=== PATIENT | female | born 1940 | race Caucasian/White ===

== ENCOUNTER 2021-05-07 16:38 | Inpatient (IN) | payer OTHER ==
[~2021-05-07] VITALS: Ht 162.6 cm; Wt 51.3 kg
[~2021-05-07 16:38] MED LIST: MUCINEX600 MG PO; OMNICEF 300 MG300 MG PO
[2021-05-07 17:56] LABS: HEMOGLOBIN 9.5 gm/dl (12.3-15.3); RED BLOOD COUNT 3.96 M/UL (4.00-5.10); WHITE BLOOD COUNT 10.3 K/UL (4.5-11.0)
[2021-05-08 05:01] LABS: HEMOGLOBIN 9.5 gm/dl (12.3-15.3); RED BLOOD COUNT 4.02 M/UL (4.00-5.10); WHITE BLOOD COUNT 12.8 K/UL (4.5-11.0)
[2021-05-08] MEDS ORDERED: HYDRALAZINE HCL25 MG PO (06:48)
[2021-05-08] MEDS ORDERED: NORVASC10 MG PO (06:49)
[2021-05-08] MEDS ORDERED: LANTUS SOL100 UNIT/1 SC (06:49)
[2021-05-08] MEDS ORDERED: COREG 25MG TAB25 MG PO (06:49)
[2021-05-08] MEDS ORDERED: OMEPRAZOLE20 MG PO (06:49)
[2021-05-08] MEDS ORDERED: LIPITOR TAB 2020 MG PO (06:50)
[2021-05-08] MEDS ORDERED: GLUCOTROL XL 5 M5 MG PO (06:50)
[2021-05-08] MEDS ORDERED: ACTOS TAB 15MG15 MG PO (06:50)
[2021-05-08] MEDS ORDERED: SYNTHROID112 MCG PO (06:50)
[2021-05-08] MEDS ORDERED: BENICAR40 MG PO (06:51)
[2021-05-09 02:38] LABS: HEMOGLOBIN 9.1 gm/dl (12.3-15.3); RED BLOOD COUNT 3.8 M/UL (4.00-5.10); WHITE BLOOD COUNT 14.6 K/UL (4.5-11.0)
[2021-05-10 01:44] LABS: HEMOGLOBIN 9.2 gm/dl (12.3-15.3); RED BLOOD COUNT 3.82 M/UL (4.00-5.10); WHITE BLOOD COUNT 14.4 K/UL (4.5-11.0)
[2021-05-12 02:29] LABS: HEMOGLOBIN 8.9 gm/dl (12.3-15.3); RED BLOOD COUNT 3.7 M/UL (4.00-5.10)
[2021-05-13 02:52] LABS: HEMOGLOBIN 8.7 gm/dl (12.3-15.3); RED BLOOD COUNT 3.6 M/UL (4.00-5.10)
[2021-05-13 02:53] LABS: WHITE BLOOD COUNT 13.7 K/UL (4.5-11.0)
--- NOTE | 2021-05-13 13:13 | NUR ---
SPOKE WITH MARTIN AT DR PRATT OFFICE TO INFORM HIM OF CONSULT
[2021-05-15 11:15] LABS: CREATININE, URINE 33.4 mg/dL (Not Estab.)
--- NOTE | 2021-05-15 20:23 | NUR ---
ATTEMPTED TO CALL FAMILY REGARDING NG TUBE PLACEMENT.
--- NOTE | 2021-05-16 01:05 | NUR ---
ATTEMPTED NG TUBE PLACEMENT X2. PATIENT IS OREINTED TO HERSELF AND PLACE. PATIENT REFUSED FOR A 3RD ATTEMPT. SHE RESISTED AND WAS UNCOOPERATIVE WITH THE ATTEMPTED PLACEMENT OF THE NG.
--- NOTE | 2021-05-16 01:10 | NUR ---
ATTEMPTED TO PLACE DOBHOFF X2. PATIENT WAS ALERT AND OREINTED TO PERSON AND PLACE. PATIENT REFUSED A 3RD ATTEMPT. SHE RESISTED AND WAS UNCOOPERATIVE DURING THE ATTEMPT TO PLACE DOBHOFF.
[2021-05-16 02:38] LABS: HEMOGLOBIN 8.5 gm/dl (12.3-15.3); RED BLOOD COUNT 3.57 M/UL (4.00-5.10)
[2021-05-16 02:43] LABS: WHITE BLOOD COUNT 9.6 K/UL (4.5-11.0)
--- NOTE | 2021-05-16 04:32 | NUR ---
ATTEMPTED DOBHOFF PLACEMENT. MET RESISTANCE BUT WAS ABLE TO PUSH BY, PATIENT STARTED TO DESAT INTO THE 70S WE GOT TO 30CM. PATIENT WAS TURNING BLUE, COUGHING AND WAS HOLDING HER BREATH WHILE PULLING AT THE DOBHOFF. SCANT AMOUNT OF BLOOD WAS NOTED. THERON RN PULLED BACK ON THE DOBHOFF DUE TO PATIENT NONCOMPLIANCE AND SATS DROPPING. ONCE DOBHOFF WAS PULLED BACK OUT, PATIENTS SATS BEGAN TO COME BACK UP TO 98%, HR RETURNED TO NORMAL AND TIP OFF DOBHOFF WAS INTACT. ASCULTATED ALL LUNG SOUNDS. NO CHANGES NOTED.
[2021-05-16 12:15] LABS: COMPLEMENT C3, SERUM 131 mg/dL (82-167); COMPLEMENT C4, SERUM 32 mg/dL (12-38)
[2021-05-16 16:15] LABS: A/G RATIO 0.9 (0.7-1.7); ALBUMIN 2.6 g/dL (2.9-4.4); ALPHA-1-GLOBULIN 0.4 g/dL (0.0-0.4); GAMMA GLOBULIN 0.6 g/dL (0.4-1.8); GLOBULIN, TOTAL 2.9 g/dL (2.2-3.9); IMMUNOGLOBULIN A, QN, SERUM 190 mg/dL (64-422); IMMUNOGLOBULIN G, QN, SERUM 611 mg/dL (586-1602); IMMUNOGLOBULIN M, QN, SERUM 66 mg/dL (26-217); M-SPIKE Not Observed g/dL (Not Observed); PROTEIN, TOTAL, SERUM 5.5 g/dL (6.0-8.5)
[2021-05-16 17:09] LABS: ANTI-DSDNA ANTIBODIES <1 IU/mL (0-9)
[2021-05-17 17:09] LABS: ANTIMYELOPEROXIDASE (MPO) ABS <9.0 U/mL (0.0-9.0); ANTIPROTEINASE 3 (PR-3) ABS <3.5 U/mL (0.0-3.5); ATYPICAL PANCA <1:20 titer (Neg:<1:20); CYTOPLASMIC (C-ANCA) <1:20 titer (Neg:<1:20); PERINUCLEAR (P-ANCA) <1:20 titer (Neg:<1:20)
[2021-05-22 03:02] LABS: HEMOGLOBIN 7.1 gm/dl (12.3-15.3); RED BLOOD COUNT 2.99 M/UL (4.00-5.10); WHITE BLOOD COUNT 9.9 K/UL (4.5-11.0)
[2021-05-22 10:28] LABS: HEMOGLOBIN 7.9 gm/dl (12.3-15.3)
[2021-05-22 10:35] LABS: RED BLOOD COUNT 3.32 M/UL (4.00-5.10); WHITE BLOOD COUNT 12.8 K/UL (4.5-11.0)
[2021-05-23 09:07] LABS: HEMOGLOBIN 9.2 gm/dl (12.3-15.3)
[2021-05-23 09:08] LABS: RED BLOOD COUNT 3.7 M/UL (4.00-5.10)
[2021-05-24 04:41] LABS: HEMOGLOBIN 9.5 gm/dl (12.3-15.3); RED BLOOD COUNT 3.9 M/UL (4.00-5.10); WHITE BLOOD COUNT 10.8 K/UL (4.5-11.0)
[2021-05-25 06:25] LABS: HEMOGLOBIN 9.6 gm/dl (12.3-15.3); RED BLOOD COUNT 3.89 M/UL (4.00-5.10)
[2021-05-25 06:28] LABS: WHITE BLOOD COUNT 7.7 K/UL (4.5-11.0)
[2021-05-26 09:00] LABS: HEMOGLOBIN 9.5 gm/dl (12.3-15.3); RED BLOOD COUNT 3.86 M/UL (4.00-5.10); WHITE BLOOD COUNT 7.6 K/UL (4.5-11.0)
[2021-05-27 06:37] LABS: HEMOGLOBIN 8.8 gm/dl (12.3-15.3); RED BLOOD COUNT 3.63 M/UL (4.00-5.10); WHITE BLOOD COUNT 7.6 K/UL (4.5-11.0)
[2021-05-27 20:27] LABS: HEMOGLOBIN 8.9 gm/dl (12.3-15.3); RED BLOOD COUNT 3.61 M/UL (4.00-5.10)
[2021-05-27 20:32] LABS: WHITE BLOOD COUNT 9.6 K/UL (4.5-11.0)
[2021-05-28 03:34] LABS: HEMOGLOBIN 8.7 gm/dl (12.3-15.3); RED BLOOD COUNT 3.56 M/UL (4.00-5.10); WHITE BLOOD COUNT 8.3 K/UL (4.5-11.0)
--- NOTE | 2021-05-28 23:33 | NUR ---
patient resting in bed with eyes closed. respirations even and unlabored with no complaints at this time. 02 in use n/c telemtry in use afib vs sinus with heart rate in the 80s.
[2021-05-29 06:51] LABS: HEMOGLOBIN 9.1 gm/dl (12.3-15.3); RED BLOOD COUNT 3.75 M/UL (4.00-5.10); WHITE BLOOD COUNT 7.7 K/UL (4.5-11.0)
[2021-05-30 03:51] LABS: HEMOGLOBIN 7.8 gm/dl (12.3-15.3)
[2021-05-30 03:52] LABS: RED BLOOD COUNT 3.21 M/UL (4.00-5.10)
[2021-05-30 17:12] LABS: HEPARIN INDUCED PLATELET AB 0.107 OD (0.000-0.400)
[2021-05-31 03:36] LABS: RED BLOOD COUNT 3.05 M/UL (4.00-5.10)
[2021-05-31 03:44] LABS: HEMOGLOBIN 6.9 gm/dl (12.3-15.3); WHITE BLOOD COUNT 10.3 K/UL (4.5-11.0)
[2021-05-31 17:12] LABS: HEMOGLOBIN 9.2 gm/dl (12.3-15.3)
[2021-06-01 06:34] LABS: HEMOGLOBIN 8.6 gm/dl (12.3-15.3); WHITE BLOOD COUNT 11.2 K/UL (4.5-11.0)
[2021-06-01 06:36] LABS: RED BLOOD COUNT 3.57 M/UL (4.00-5.10)
[2021-06-02 06:15] LABS: HEMOGLOBIN 8.6 gm/dl (12.3-15.3); RED BLOOD COUNT 3.58 M/UL (4.00-5.10); WHITE BLOOD COUNT 10.5 K/UL (4.5-11.0)
[2021-06-03 03:48] LABS: HEMOGLOBIN 8.4 gm/dl (12.3-15.3); RED BLOOD COUNT 3.26 M/UL (4.00-5.10)
[2021-06-03] MEDS ORDERED: CARVEDILOL3.125 MG PO (15:37)
[2021-06-03] MEDS ORDERED: IPRAT-ALBUT 0.5-3 ML NEB (15:37)
[2021-06-03] MEDS ORDERED: TAB-A-VITE TA400 MC1 PO (15:37)
[2021-06-03] MEDS ORDERED: FOLIC ACID 1 MG1 MG PO (15:37)
[2021-06-03] MEDS ORDERED: HUMALOG 10100 UNITS/ SC (15:37)
[2021-06-03] MEDS ORDERED: HYDRALAZINE HCL50 MG PO (15:37)
[2021-06-03] MEDS ORDERED: ELIQUIS 2.5 MG2.5 MG PO (15:37)
[2021-06-03] MEDS ORDERED: TRAMADOL HCL50 MG PO (15:39)
[2021-06-03] MEDS ORDERED: LANTUS SOL100 UNIT/1 SC (15:39)
== END 2021-06-05 08:34 | DRG 177 ==
LOC: ER1 16:38 → CDU 18:56 → PROG CARE 18:56 → MED SURG 4 18:56 → PROG CARE 05-08 13:58 → MED SURG 4 05-21 04:34
PROVIDERS: Internal Medicine; Internal Medicine Nephrology; Physician Assistant; Physician Assistant Medical; ADMIT Internal Medicine
PROC: B24BZZ4 Ultrasonography of Heart with Aorta, Transesophageal (ICD-10-PCS; principal; 2021-05-09)
DX: J69.0 Pneumonitis due to inhalation of food and vomit (principal); I50.33 Acute on chronic diastolic (congestive) heart failure; G93.41 Metabolic encephalopathy; N17.0 Acute kidney failure with tubular necrosis; J96.21 Acute and chronic respiratory failure with hypoxia; Z20.822 Contact with and (suspected) exposure to COVID-19; Z66 Do not resuscitate; I13.0 Hypertensive heart and chronic kidney disease with heart failure and stage 1 through stage 4 chronic kidney disease, or unspecified chronic kidney disease; N17.9 Acute kidney failure, unspecified; D63.1 Anemia in chronic kidney disease; N18.30 Chronic kidney disease, stage 3 unspecified; F03.90 Unspecified dementia, unspecified severity, without behavioral disturbance, psychotic disturbance, mood disturbance, and anxiety; E83.42 Hypomagnesemia; D69.59 Other secondary thrombocytopenia; E03.9 Hypothyroidism, unspecified; T36.8X5A Adverse effect of other systemic antibiotics, initial encounter; R29.810 Facial weakness; E11.22 Type 2 diabetes mellitus with diabetic chronic kidney disease; I07.1 Rheumatic tricuspid insufficiency; R13.10 Dysphagia, unspecified; E87.6 Hypokalemia; I48.91 Unspecified atrial fibrillation; Z79.01 Long term (current) use of anticoagulants; Z90.710 Acquired absence of both cervix and uterus; Z82.49 Family history of ischemic heart disease and other diseases of the circulatory system; Z82.3 Family history of stroke; Z79.4 Long term (current) use of insulin; Z90.49 Acquired absence of other specified parts of digestive tract
CPT/HCPCS: ECHO; 36415; 36430; 70450; 70551; 71045; 74230; 80048; 80053; 81001; 82043; 82270; 82550; 82553; 82570; 82607; 82728; 82746; 82784; 82803; 82962; 83520; 83540; 83550; 83735; 83874; 83880; 84132; 84155; 84156; 84165; 84439; 84443; 84484; 85014; 85018; 85025; 85027; 85652; 86038; 86140; 86160; 86225; 86256; 86334; 86850; 86900; 86901; 86920; 92526; 92610; 93005; 93306; 93970; 93971; 94640; 94664; 94760; 96374; 97110; 97110-GP-CQ; 97116; 97116-GP-CQ; 97162; 97166; 97530; 97530-GP-CQ; 97535; 99285; G0378; J0456; J0692; J0696; J1650; J1756; J1940; J2930; J3475; J3480; J7030; J7050; P9016; P9047; Q5106; U0002